=== PATIENT | male | born 1985 | race Caucasian/White ===

== ENCOUNTER 2024-10-26 06:20 | Day surgery (SDC) | payer OTHER, SELFPAY ==
[2024-10-26 06:42] VITALS: BP 129/84; PULSE 61; RESP 12; TEMP 36.4; O2SAT 99
[2024-10-26] MEDS: Lactated Ringers 1,000 ML 80 ML IV (06:53)
--- NOTE | 2024-10-26 07:15 | ANES.PREOP_ITS ---
General Info Date of Service Date Performed: 10/26/24 Height: 5 ft 11 in Weight: 76.5 kg Body Mass Index (BMI): 23.5 Surgical Procedure: Operation Date: 10/26/24 07:35 Proposed Procedure Side Surgeon ila Linda MD Meds Allergies and Home Medications Allergies Allergy/AdvReac Type Severity Reaction Status Date / Time No Known Allergies Allergy Verified 10/26/24 06:31 Home Medication ?Medication ?Instructions ?Recorded cetirizine 10 mg tablet 10 mg PO DAILY 07/10/19 fluticasone propionate 50 1 spray intranasal DAILY 07/10/19 mcg/actuation nasal spray,suspension (Flonase Allergy Relief) ibuprofen 200 mg tablet 400 mg PO Q6H PRN 07/10/19 diphenhydramine HCl 25 mg capsule 25 mg PO QHS 02/09/24 (Benadryl) Current Visit Medications: Current Medications Generic Name Dose Route Start Last Admin Trade Name Freq PRN Reason Stop Dose Admin Ringer's Solution 1,000 mls @ 80 mls/hr 10/26/24 06:00 10/26/24 06:53 IV 10/26/24 23:59 80 mls/hr INFUSION RICKI Administration IV Miscellaneous Supplies 1 each 10/26/24 06:00 Iv Access IV 10/26/24 23:59 DIRECTED RICKI Sodium Chloride 0 ml 10/26/24 06:00 Normal Saline Flush 10 Ml Syr IV 10/26/24 23:59 PRN PRN Sodium Chloride 0 ml 10/26/24 06:00 Normal Saline 10 Ml Vial IJ 10/26/24 23:59 DIRECTED PRN Sterile Water 0 ml 10/26/24 06:00 Water,Injection,Sterile 10 Ml Vial IJ 10/26/24 23:59 DIRECTED PRN PFSH Active Problems Active Problems: Problem Status Onset Code Tinea pedis Acute B35.3 Encounter to establish care Acute Z76.89 Allergic rhinitis Acute J30.9 Environmental allergies Acute Z91.09 Myopia of both eyes Acute H52.13 Skin turgor fair Acute Medical History Medical History Multiple benign melanocytic nevi of upper extremity, lower extremity, and trunk 04/06/24 DH Derm Varicella IGG positive 02/14/16 Surgical History Surgical History [place] teeth extracted Tobacco Smoking/Tobacco Use Status: Never Alcohol Alcohol Intake: current Alcohol intake frequency: 0-2 drinks per day Alcohol type: beer Substance Use Substance use: Never Substance use type: does not use Vital Signs and Lab Results Vital Signs Most Recent Vital Signs in EMR: Most Recent Vital Signs Temp Pulse Resp BP Pulse Ox 36.4 C L 61 12 129/84 99 10/26/24 06:42 10/26/24 06:42 10/26/24 06:42 10/26/24 06:42 10/26/24 06:42 Lab Results Blood Type / Crossmatch: No Data to Display Complete Blood Count: No Data to Display Complete Metabolic Panel: No Data to Display Liver Function Panel: No Data to Display Coagulation Panel: No Data to Display Cardiac Panel: No Data to Display Arterial Blood Gas: No Data to Display Venous Blood Gas: No Data to Display Pancreas Panel: No Data to Display Thyroid Panel: No Data to Display Infectious Disease: No Data to Display Blood Cultures: No Data to Display Toxicology Panel: No Data to Display Anesthesia Assessment and Plan Anesthesia History Personal History: Unknown Anesthesia History Family History: No Family History of Anesthesia Complications Exercise Tolerance Exercise Tolerance: Metabolic Equivalents>4 Pertinent Negatives Pertinent Negatives: No Symptoms of GERD Cardiac & Pulmonary Exam Cardiac Exam: Normal S1/S2 Heart Sounds Pulmonary Exam: Clear Bilateral Breath Sounds Implantable Cardiac Device Does patient have a Pacemaker or an ICD?: No Airway Exam Known Difficult Airway: No Mallampati Class: 2 Mouth Opening: Normal (> 3cm) Thyromental Distance: Greater than 3 cm Neck Range of Motion: Full ROM Neck Circumference: Normal Teeth Condition: Normal Dentition ASA Classification ASA Score: ASA 2 Emergency Case?: No NPO Status NPO Status: NPO Clears >2 hours, Solids >8 hours Anesthesia Plan Resuscitation Status: Full Code Anesthesia Technique: General Anesthesia Airway Planned: Natural Airway Monitors Used: Standard Monitors
[2024-10-26 07:17] VITALS: BMI 23.5
--- NOTE | 2024-10-26 07:39 | W.SURGCON ---
Date of service: 10/26/24 Time of Service: 07:39 Assessment and Plan Assessment and plan (1) Family history of polyps in the colon: Status: Acute Assessment and plan: 39-year-old man due for screening colonoscopy. No symptoms but increased risk factor with a first-degree family member with adenomatous colon polyps. Overall plan: Colonoscopy History of Present Illness Narrative: The patient is a 39-year-old man here for his first screening colonoscopy. He has a family history of first-degree relative with adenomatous colon polyps and it was recommended that he start screening at the age of 40. He has never had intra-abdominal surgery. He does not have any bowel habit changes or any bowel habit issues and has not seen any blood in his stools. PFSH All Active Problems (Updated 10/26/24 @ 07:41 by Rodrgiuez Linda MD) Family history of polyps in the colon (Acute) Tinea pedis (Acute) Encounter to establish care (Acute) Allergic rhinitis (Acute) Environmental allergies (Acute) Allergy injections Myopia of both eyes (Acute) Skin turgor fair (Acute) Medical History (Updated 10/26/24 @ 07:41 by Rodriguez Linda MD) Multiple benign melanocytic nevi of upper extremity, lower extremity, and trunk 04/06/24 DH Derm Varicella IGG positive 02/14/16 Surgical History [place] teeth extracted Family History Father Arrhythmia Heart disease Paternal Grandmother Heart disease Glaucoma Paternal Grandfather Heart disease Social History Smoking/Tobacco Use Status: Never Smoking risk assessment performed?: Yes Alcohol Intake: current Alcohol Intake frequency: 0-2 drinks per day Alcohol type: beer Drug use: Never Substance use type: does not use Counseling given: No Adopted: No Caregiver/Support person: No Foster care: No Household members: none Housing: house Number of Children: 0 Communication Needs: Corrective Lenses Do you need help understanding health information?: Rarely current occupation: Pharmacist, [employer] Sexually active: Yes Do you think of yourself as: straight/heterosexual Current gender identity: male What type of physical activity do you participate in: regular exercise, weight lifting and running Duration: 30-45 minutes/day Frequency: 5-6 times per week Seatbelt use: always Do you feel safe at home: Yes Do you feel safe in your relationship?: Yes Exam Narrative Exam Narrative: Gen: Non-toxic, comfortable and interactive Neuro: Alert and oriented x3 Psych: Good mood and affect. Good insight and understanding into condition. Chest: Non-labored breathing, no wheezing, no visible shortness of breath. Heart: Regular Results Last Vital Signs Temp 97.5 F L 10/26/24 06:42 Pulse 61 10/26/24 06:42 Resp 12 10/26/24 06:42 BP 129/84 10/26/24 06:42 Pulse Ox 99 10/26/24 06:42
--- NOTE | 2024-10-26 07:42 | COLE_ITS ---
Date of service: 10/26/24 Time of Service: 07:42 Colonoscopy Report Procedure Description: PROCEDURES PERFORMED: 1. Colonoscopy PREOPERATIVE DIAGNOSIS: Screening colonoscopy POSTOPERATIVE DIAGNOSIS: SURGEON: Campos Linda MD INDICATION FOR PROCEDURE: the patient is a 39-year-old man due for his for screening colonoscopy. Family history of adenomatous colon polyps in a first- degree relative. He has no symptoms or concerns. FINDINGS: Normal terminal ileum. No polyps anywhere. No inflammation anywhere. No obvious diverticular disease. No hemorrhoid disease. SURVEILLANCE interval/FOLLOW-UP: While screening starts earlier(40) with this family history, in the absence of any findings, different society guidelines recommend between 5 and 10 years for next screening. SPECIMENS: None EBL: Minimal/none COMPLICATIONS: None QUALITY of prep: Excellent Procedure in detail: The patient gave written consent and was in agreement with the indications, the potential risks as well as the benefits of the procedure. They were taken to the endoscopy suite and laid in the left lateral decubitus position. A timeout was performed and anesthesia was administered which was tolerated well. I started the procedure. Digital rectal and visual examination was performed and grossly within normal limits. A well-lubricated flexible colonoscope was then introduced and passed without any notable difficulty all the way to the cecum identified by the ileocecal valve and the appendiceal orifice. The terminal ileum was intubated and looked normal. The scope was then slowly withdrawn with the above-noted findings. The patient tolerated the procedure well and was taken to the PACU in hemodynamically stable condition.
[2024-10-26 08:14] VITALS: BP 120/85; PULSE 57; RESP 17; TEMP 36.6; O2SAT 97
--- NOTE | 2024-10-26 08:21 | W.PM.DSUDISC ---
Date of service: 10/26/24 Discharge Plan Disposition Patient Disposition: Home Condition: Good Discharge Details Attending Provider: Rodriguez Linda Primary Care Provider: Lyla Huff Home Meds and New Rx's Prescriptions: No Action diphenhydramine HCl [Benadryl] 25 mg capsule 25 mg PO QHS cetirizine 10 mg tablet 10 mg PO DAILY fluticasone propionate [Flonase Allergy Relief] 50 mcg/actuation spray,suspension 1 spray PAWEL DAILY ibuprofen 200 mg tablet 400 mg PO Q6H PRN Discharge Instructions Additional Instructions: FINDINGS: Your small intestine, colon and rectum all appear completely normal and healthy. There were no findings of concern. Surveillance intervals in the setting of a family history of colon polyps vary depending on different Society recommendations: While screening is recommended to start earlier, at the age of 40, there is debate on ideal surveillance interval when there are no findings. Most societies recommend 5 year intervals because there is no clear data on whether 10 years is safe or not. The incidence of colon cancer increases as you get older. I recommend 5-10 years depending on your tolerance of risk. Stand Alone Forms: Anesthesia Discharge Inst., Uri Moseley ([facility]) Activity:: Activity as Tolerated Diet:: As Tolerated Discharge Orders Discharge Orders: Discharge Order (Routine); Ordered 10/26/24 Ordered By: Rodriguez Linda DS: Diagnosis Discharge Diagnosis (1) Family history of polyps in the colon: Status: Acute
--- NOTE | 2024-10-26 08:24 | W.ANESPOSTOP ---
Postoperative Evaluation Date, Time and Location Date Performed: 10/26/24 Time Performed: 08:24 Patient Location: Day Surgery Unit Vital Signs Most Recent Imported Vital Signs: Most Recent Vital Signs Temp Pulse Resp BP Pulse Ox 36.6 C 57 L 17 120/85 97 10/26/24 08:14 10/26/24 08:14 10/26/24 08:14 10/26/24 08:14 10/26/24 08:14 Assessment Mental Status: Awake (Alert & Oriented to Patient Baseline) Airway and Respiratory Function: Patent airway with normal (patient baseline) respiratory exam Cardiovascular Function: Hemodynamically Stable Hydration Status: Adequately Hydrated Nausea & Vomiting: No Nausea or Vomiting Pain: Pt. Denies Any Pain Peripheral Nerve Block: Patient did not receive a nerve block
[2024-10-26 08:41] VITALS: BP 128/88; PULSE 60; RESP 19; TEMP 37; O2SAT 97
== END 2024-10-26 08:59 | disposition home or self-care (01) ==
PROVIDERS: PCP Nurse Practitioner; Visit Provider Student in an Organized Health Care Education/Training Program
PROC: 0DJD8ZZ Inspection of Lower Intestinal Tract, Via Natural or Artificial Opening Endoscopic (ICD-10-PCS; CPT 45378; principal; 2024-10-26 07:30)
DX: Z83.719 Family history of colon polyps, unspecified (principal); Z12.11 Encounter for screening for malignant neoplasm of colon
CPT/HCPCS: 45378; J2704